=== PATIENT | male | born 1995 | race Hispanic/Latino ===

== ENCOUNTER 2018-04-18 08:57 | Emergency (ER) | payer BC ==
[2018-04-18 09:01] VITALS: BMI 18.7
[2018-04-18] MEDS ORDERED: Sodium Chloride 0.9% 1,000 ML IV STA (09:32)
[2018-04-18 09:56] LABS: BASO % 0.9 % (0.0-2.0); EOS # 0.1 K/uL (0.0-0.7); EOS % 2.3 % (0.0-4.0); HEMOGLOBIN 14.2 g/dL (12.0-18.0); LYMPH # 1.3 K/uL (1.0-4.3); LYMPH % 29.2 % (20.0-40.0); MEAN CELL VOLUME 91.6 fl (80.0-94.0); MEAN CORPUSCULAR HEMOGLOBIN 31.9 pg (27.0-31.0); MEAN CORPUSCULAR HGB CONC 34.8 g/dL (33.0-37.0); MEAN PLATELET VOLUME 7.2 fl (7.2-11.7); MONO # 0.5 K/uL (0.0-0.8); MONO % 10.3 % (0.0-10.0); NEUT # 2.6 K/uL (1.8-7.0); NEUT % 57.3 % (50.0-75.0); NRBC % 0.1 % (0.0-0.0); RBC 4.47 Mil/uL (4.40-5.90); RED CELL DISTRIBUTION WIDTH 12.7 % (11.5-14.5); WHITE BLOOD COUNT 4.6 K/uL (4.8-10.8)
[2018-04-18 10:03] LABS: ALB/GLOB RATIO 1.7 (1.0-2.1); ALBUMIN 4.4 g/dL (3.5-5.0); ALT/SGPT 23 U/L (21-72); AST/SGOT 23 U/L (17-59); BLOOD UREA NITROGEN 16 mg/dl (9-20); CALCIUM 9.5 mg/dL (8.4-10.2); GFR AFRICAN-AMERICAN > 60; GFR NON-AFRICAN AMERICAN > 60
--- NOTE | 2018-04-18 10:05 | RAD ---
HISTORY: SOB COMPARISON: No prior. FINDINGS: LUNGS: No active pulmonary disease. PLEURA: No significant pleural effusion identified, no pneumothorax apparent. CARDIOVASCULAR: Normal. OSSEOUS STRUCTURES: No significant abnormalities. VISUALIZED UPPER ABDOMEN: Normal. OTHER FINDINGS: None. IMPRESSION: No active disease.
[2018-04-18 10:11] LABS: B-TYPE NATRIURETIC PEPTIDE 27.4 pg/ml (0-450)
[2018-04-18 10:38] LABS: SQUAMOUS EPITHIAL < 1 /hpf (0-5); URINE BACTERIA RARE (<OCC); URINE BILIRUBIN NEGATIVE (NEGATIVE); URINE BLOOD NEGATIVE (NEGATIVE); URINE CLARITY SLIGHTY-CLOUDY (Clear); URINE COLOR YELLOW (YELLOW); URINE GLUCOSE (UA) NEG (Normal); URINE LEUKOCYTE ESTERASE NEG Leu/uL (Negative); URINE PROTEIN 30 mg/dL (NEGATIVE)
[2018-04-18 10:49] LABS: BARBITURATES, UR NEGATIVE (NEGATIVE); BENZODIAZEPINES, UR NEGATIVE (NEGATIVE); OPIATES, UR NEGATIVE (NEGATIVE); PHENCYCLIDINE, UR NEGATIVE (NEGATIVE)
--- NOTE | 2018-04-18 11:44 | ED PDOC ---
Syncope/Near Syncope/Dizziness Time Seen by Provider: 04/18/18 09:11 Chief Complaint (Nursing): Dizziness/Lightheaded Chief Complaint (Provider): Dizziness History Per: Patient History/Exam Limitations: no limitations Current Symptoms Are (Timing): Better Additional Complaint(s): 22 year old male presents to the ED complaining of syncopal episode today morning. Patient states on his way to work, he felt abdominal cramping. On the bus, patient felt dizzy and trigonometry teacher witnessed a syncopal episode for 20 seconds. He returned to baseline rapidly without postictal period. His trigonometry teacher states, there was no compulsive activity, tongue bite, or incontinence. Patient states he uses cannabis daily. Also reports the abdominal pain has resolved. Denies illness, fever, vomiting, diarrhea, shortness of breath or chest pain. PMD: No Family Provider Past Medical History Reviewed: Historical Data, Nursing Documentation, Vital Signs Vital Signs: Last Vital Signs Temp 97.7 F 04/18/18 09:00 Pulse 57 L 04/18/18 09:00 Resp BP 101/56 L 04/18/18 09:00 Pulse Ox 98 04/18/18 09:10 - Medical History PMH: No Chronic Diseases - Surgical History Other surgeries: orthopedic surgery - Family History Family History: States: Unknown Family Hx - Social History Drugs: Cannabis - Allergies Allergies/Adverse Reactions: Allergies Allergy/AdvReac Type Severity Reaction Status Date / Time No Known Allergies Allergy Verified 04/18/18 09:31 Review of Systems ROS Statement: Except As Marked, All Systems Reviewed And Found Negative Constitutional: Negative for: Fever Cardiovascular: Negative for: Chest Pain Respiratory: Negative for: Shortness of Breath Gastrointestinal: Negative for: Vomiting, Diarrhea Neurological: Positive for: Dizziness, Other (syncope, light-headedness) Physical Exam - Reviewed Nursing Documentation Reviewed: Yes Vital Signs Reviewed: Yes - Physical Exam Appears: Positive for: Non-toxic, No Acute Distress Head Exam: Positive for: ATRAUMATIC, NORMAL INSPECTION, NORMOCEPHALIC Skin: Positive for: Normal Color, Warm, Dry Eye Exam: Positive for: EOMI, Normal appearance, PERRL ENT: Positive for: Normal ENT Inspection Neck: Positive for: Normal, Painless ROM, Supple. Negative for: Decreased ROM Cardiovascular/Chest: Positive for: Regular Rate, Rhythm. Negative for: Murmur Respiratory: Positive for: Normal Breath Sounds. Negative for: Decreased Breath Sounds, Accessory Muscle Use, Respiratory Distress Gastrointestinal/Abdominal: Positive for: Normal Exam, Bowel Sounds, Soft. Negative for: Tenderness, Guarding, Rebound Back: Positive for: Normal Inspection. Negative for: L CVA Tenderness, R CVA Tenderness Extremity: Positive for: Normal ROM. Negative for: Tenderness, Pedal Edema, Deformity Neurologic/Psych: Positive for: Alert, Oriented (x3). Negative for: Motor/ Sensory Deficits - Laboratory Results Result Diagrams: 04/18/18 09:40 04/18/18 09:40 - ECG O2 Sat by Pulse Oximetry: 98 (RA) Pulse Ox Interpretation: Normal Medical Decision Making Medical Decision Making: Time: 930 Initial Impression: syncope Initial Plan: --Head w/o contrast CT --EKG --Alcohol serum --B-type Natriuretic Peptide --CMP --Drug Screen --TSH --CBC w/ Differential --Chest Portable [RAD] --Glucose, POC --Normal Saline 1000 mls/hr --Glucose, Blood, POC Stat --Urinalysis --Reevaluation Time: 1003 HISTORY: SOB COMPARISON: No prior. FINDINGS: LUNGS: No active pulmonary disease. PLEURA: No significant pleural effusion identified, no pneumothorax apparent. CARDIOVASCULAR: Normal. OSSEOUS STRUCTURES: No significant abnormalities. VISUALIZED UPPER ABDOMEN: Normal. OTHER FINDINGS: None. IMPRESSION: No active disease. Time: 1208 PROCEDURE: CT HEAD WITHOUT CONTRAST. HISTORY: possible new onset seizure COMPARISON: None available. TECHNIQUE: Axial computed tomography images were obtained through the head/brain without intravenous contrast. Radiation dose: Total exam DLP = 789.33 mGy-cm. This CT exam was performed using one or more of the following dose reduction techniques: Automated exposure control, adjustment of the mA and/or kV according to patient size, and/or use of iterative reconstruction technique. FINDINGS: HEMORRHAGE: No intracranial hemorrhage. BRAIN: Normal cornejo-white matter differentiation and density are appreciated throughout the cerebrum and cerebellum with the brainstem appearing unremarkable as well. There is no mass effect. There is no suspicious extra-axial fluid collection and the midline brain anatomy appears diffusely unremarkable. No atrophy or chronic microvascular ischemic changes. VENTRICLES: Unremarkable. No hydrocephalus. CALVARIUM: Unremarkable. PARANASAL SINUSES: Multiple ethmoid sinusitis incidentally noted. MASTOID AIR CELLS: Unremarkable as visualized. No inflammatory changes. OTHER FINDINGS: None. IMPRESSION: Unremarkable noncontrast head CT. CT reports and blood work reviewed. Patient given IV fluid for mild dehydration. He feels better and denies pain. Patient will be referred to [facility] and neurologist for syncope work-up. Patient was eating a sandwich prior to discharge and agrees to the discharge plan. Avoid marijuana. Scribe Attestation: Documented by Mike Ayala, acting as a scribe for Jason Franklin III, DO Provider Scribe Attestation: All medical record entries made by the Scribe were at my direction and personally dictated by me. I have reviewed the chart and agree that the record accurately reflects my personal performance of the history, physical exam, medical decision making, and the department course for this patient. I have also personally directed, reviewed, and agree with the discharge instructions and disposition. Disposition - Clinical Impression Clinical Impression: Syncope - Patient ED Disposition Is Patient to be Admitted: No Counseled Patient/Family Regarding: Studies Performed, Diagnosis, Need For Followup - Disposition Referrals: Franc Oh MD [Staff Provider] - Amado Lacey MD [Medical Doctor] - Disposition: Routine/Home Disposition Time: 12:15 Condition: STABLE Additional Instructions: Avoid marijuana for now, drink plenty of fluids, return to ER for any new or worsening symptoms. Caution with driving or operating machinery until seen and cleared by cardiology and neurology. Instructions: Syncope (Fainting) Forms: [employer] (Yi)
--- NOTE | 2018-04-18 12:01 | CARD ---
APPROVED REPORT EKG Measurement Heart [id number] <Conclusion> Sinus bradycardia Otherwise normal ECG
--- NOTE | 2018-04-18 12:09 | CT ---
PROCEDURE: CT HEAD WITHOUT CONTRAST. HISTORY: possible new onset seizure COMPARISON: None available. TECHNIQUE: Axial computed tomography images were obtained through the head/brain without intravenous contrast. Radiation dose: Total exam DLP = 789.33 mGy-cm. This CT exam was performed using one or more of the following dose reduction techniques: Automated exposure control, adjustment of the mA and/or kV according to patient size, and/or use of iterative reconstruction technique. FINDINGS: HEMORRHAGE: No intracranial hemorrhage. BRAIN: Normal cornejo-white matter differentiation and density are appreciated throughout the cerebrum and cerebellum with the brainstem appearing unremarkable as well. There is no mass effect. There is no suspicious extra-axial fluid collection and the midline brain anatomy appears diffusely unremarkable. No atrophy or chronic microvascular ischemic changes. VENTRICLES: Unremarkable. No hydrocephalus. CALVARIUM: Unremarkable. PARANASAL SINUSES: Multiple ethmoid sinusitis incidentally noted. MASTOID AIR CELLS: Unremarkable as visualized. No inflammatory changes. OTHER FINDINGS: None. IMPRESSION: Unremarkable noncontrast head CT.
[2018-04-18 13:03] VITALS: BP 124/68; PULSE 65; RESP 14; TEMP 98
[2018-04-19 13:24] VITALS: O2SAT 98
== END 2018-04-18 13:05 | disposition home or self-care (01) ==
LOC: H.ER 08:57
DX: R55 Syncope and collapse (principal); E86.0 Dehydration
CPT/HCPCS: 70450; 71045; 80053; 81003; 82948; 83880; 84443; 85025; 93005; 96360; 99283; G0480; J7030

== ENCOUNTER 2018-05-24 18:33 | Emergency (ER) | payer BC ==
[2018-05-24 18:34] VITALS: BMI 18.7
[2018-05-24 18:40] VITALS: BP 118/76; PULSE 70; RESP 18; TEMP 98.8; O2SAT 96
--- NOTE | 2018-05-24 18:48 | ED PDOC ---
Upper Extremity Pain/Injury Time Seen by Provider: 05/24/18 18:40 Chief Complaint (Nursing): Finger,Hand,&Wrist Chief Complaint (Provider): Left Wrist Injury History Per: Patient History/Exam Limitations: no limitations Onset/Duration Of Symptoms: Days (x2) Current Symptoms Are (Timing): Still Present Additional Complaint(s): 22 year old male presents to the ED for evaluation of left wrist pain. Patient states that yesterday he tripped and fell while skateboarding onto his left hand and wrist, and today while typing he had increasing pain to the area. He reports having previous surgeries on his left wrist with hardware placed. PMD: none provided Past Medical History Reviewed: Historical Data, Nursing Documentation, Vital Signs Vital Signs: Last Vital Signs Temp 98.8 F 05/24/18 18:37 Pulse 70 05/24/18 18:37 Resp 18 05/24/18 18:37 BP 118/76 05/24/18 18:37 Pulse Ox 96 05/24/18 18:37 - Medical History PMH: No Chronic Diseases - Surgical History Other surgeries: left wrist surgery - Family History Family History: States: Unknown Family Hx - Immunization History Hx Tetanus Toxoid Vaccination: No - Home Medications Home Medications: Ambulatory Orders Medication Instructions Recorded Ibuprofen [Motrin] 600 mg PO Q8 PRN #21 tab 05/24/18 - Allergies Allergies/Adverse Reactions: Allergies Allergy/AdvReac Type Severity Reaction Status Date / Time No Known Allergies Allergy Verified 05/24/18 18:37 Review of Systems ROS Statement: Except As Marked, All Systems Reviewed And Found Negative Musculoskeletal: Positive for: Hand Pain (left wrist) Physical Exam - Reviewed Nursing Documentation Reviewed: Yes Vital Signs Reviewed: Yes - Physical Exam Appears: Positive for: No Acute Distress Head Exam: Positive for: ATRAUMATIC, NORMOCEPHALIC Skin: Positive for: Normal Color, Warm, Dry Neck: Positive for: Normal, Painless ROM Cardiovascular/Chest: Positive for: Regular Rate, Rhythm Respiratory: Positive for: Normal Breath Sounds. Negative for: Accessory Muscle Use, Respiratory Distress Extremity: Positive for: Tenderness (mild to left hand volar surface; negative snuffbox tenderness), Deformity (noted to ulnar aspect of left wrist, but pt states it is old) Neurologic/Psych: Positive for: Alert, Oriented (x3). Negative for: Motor/ Sensory Deficits - ECG O2 Sat by Pulse Oximetry: 96 (RA) Pulse Ox Interpretation: Normal - Radiology X-Ray: Viewed By Me X-Ray Interpretation: No Acute Disease - Progress ED Course And Treament: XRY OF WRIST: NO FX PLACED IN THUMB SPICA SPLINT Medical Decision Making Medical Decision Making: Time: 18:42 Initial Impression: acute left wrist pain Initial Plan: --Left wrist XR Scribe Attestation: Documented by Mary Infante, acting as a scribe for Patrick Ramírez PA-C. Provider Scribe Attestation: All medical record entries made by the Scribe were at my direction and personally dictated by me. I have reviewed the chart and agree that the record accurately reflects my personal performance of the history, physical exam, medical decision making, and the department course for this patient. I have also personally directed, reviewed, and agree with the discharge instructions and disposition. Disposition - Clinical Impression Clinical Impression: Right wrist sprain - Patient ED Disposition Is Patient to be Admitted: No - Disposition Referrals: Orville Espinoza III, MD [Staff Provider] - Disposition: Routine/Home Disposition Time: 18:56 Condition: FAIR Prescriptions: Ibuprofen [Motrin] 600 mg PO Q8 PRN #21 tab PRN Reason: Pain, Moderate (4-7) Instructions: Wrist Sprain (DC)
--- NOTE | 2018-05-25 08:56 | RAD ---
Date of service: 05/24/2018 PROCEDURE: Left Wrist Radiographs. HISTORY: INJURY COMPARISON: None. FINDINGS: BONES: No acute fracture or destructive bony lesion identified throughout the carpal bones. Old avulsion fracture of ulnar styloid in question versus ununited ulnar styloid component. A small radiodensity seen lateral to the distal left radial metaphysis which is nonspecific. Consider potential retained radiodense foreign body with chip or avulsion fracture not completely excluded. No emphysema soft tissue changes are identified. Small defects are seen both at the radius and ulna in multiple sites at nearly the same levels suggestive prior ORIF with hardware now removed. JOINTS: No subluxation or dislocation. SOFT TISSUES: As above in bone section. OTHER FINDINGS: None. IMPRESSION: No acute left carpal bone fracture, subluxation or dislocation identified. Prior ORIF changes suggested at the distal radius and ulna. Soft tissue lateral to the distal left radial metaphysis may reflect small retained radiodense foreign body, or possibly chip or avulsion fracture. Prior removal orthopedic fixation hardware distal radius and ulna suspected. No prior comparison available.
== END 2018-05-24 19:55 | disposition home or self-care (01) ==
LOC: H.ER 18:33
DX: S63.502A Unspecified sprain of left wrist, initial encounter (principal); W19.XXXA Unspecified fall, initial encounter; Y92.89 Other specified places as the place of occurrence of the external cause